=== PATIENT | male | born 1995 ===

== ENCOUNTER 2025-06-21 08:00 | Day surgery (SDC) | payer OTHER ==
[2025-06-13 10:35] VITALS: BP 122/80
[2025-06-13 10:39] LABS: URINE APPEARANCE Clear; URINE BILIRRUBIN Negative (NEGATIVE); URINE BLOOD Trace; URINE COLOR Yellow; URINE GLUCOSE Negative (NEGATIVE); URINE KETONE Negative (NEGATIVE); URINE LEUKOCYTE Negative; URINE NITRATE Negative; URINE PROTEIN Negative (NEGATIVE); URINE UROBILINOGEN 1.0 E.U./dl
[2025-06-13 10:42] LABS: BASO % 0.6 % (0.1-1.2); EOS # 0.08 (0.04-0.54); EOS % 1.5 % (0.7-7.0); LYMPH # 1.17 (1.18-3.74); LYMPH % 21.5 % (19.3-53.1); MEAN PLATELET VOLUME 10.40 fl (9.4-12.4); MONO # 0.55 (0.24-0.82); MONO % 10.1 % (4.7-12.5); NEUT # 3.60 (1.56-6.13); NEUT % 65.9 % (34.0-71.1); RED CELL DISTRIBUTION WIDTH 12.7 % (11.6-14.4)
[2025-06-13 10:44] LABS: URINE RBC 32.2 uL (0.0-20.8)
[2025-06-13 11:10] LABS: INR 1.06
[2025-06-13 11:22] LABS: URINE BACTERIA 1.1 uL (0.0-1933); URINE CAST 0.00 uL (0.0-1.40); URINE EPITHELIAL CELLS 0.1 uL (0.0-38.8); URINE WBC 1.2 uL (0.0-23.2)
[2025-06-13 11:32] LABS: BUN CREA RATIO 13.0 (7.0-25.0); CREATININE SERUM 1.0 mg/dL (0.70-1.30); GFR 87.74; GLUCOSE FASTING 94.0 mg/dL (65-100); OSMOLALITY SERUM 283.0 MOSM/KG (275-295)
[~2025-06-21] VITALS: Ht 180.3 cm; Wt 77.1 kg
[2025-06-21] MEDS ORDERED: POVIDONE-IODINE SCRUB 118 ML BOTT TOP ONE (11:56)
[2025-06-21] MEDS ORDERED: POVIDONE-IODINE 118 ML BOTT TOP ONE (12:07)
[2025-06-21] MEDS ORDERED: LIDOCAINE HCL 1%/EPINEPHRINE 20ML VIAL IJ ONE (12:45)
[2025-06-21] MEDS ORDERED: CEFAZOLIN SODIUM 1,000 MG VIAL IV ONE (12:45)
[2025-06-21] MEDS ORDERED: CIPROFLOXACIN HCL 0.175 MG/DR DROPS OTIC ONE (12:45)
[2025-06-21] MEDS ORDERED: SUGAMMADEX SODIUM 200 MG/2 ML VIAL IV ONE (13:15)
[2025-06-21] MEDS ORDERED: CIPROFLOXACIN2.5 ML OTIC (13:38)
[2025-06-21] MEDS ORDERED: CEPHALEXIN500 MG PO (13:38)
== END 2025-06-21 15:40 | disposition home or self-care (01) ==
LOC: CIR.AMB 08:00
PROVIDERS: ATTEND Otolaryngology Otology & Neurotology
DX: H72.01 Central perforation of tympanic membrane, right ear (principal); H90.11 Conductive hearing loss, unilateral, right ear, with unrestricted hearing on the contralateral side